=== PATIENT | female | born 1960 | race African-American/Black ===

== ENCOUNTER → 2016-07-22 | Outpatient (CLI) | payer OTHER ==
[~2016-07-22] MED LIST: ALEVE220 MG PO; AMBEREN; AMITRIPTYLINE H25 M2 PO; BENADRYL25 MG PO; BIOTIN2500 MCG PO; CALCIUM 600 +1 EAC2 PO; CHILDREN'S ASPI81 MG PO; COLCHICINE 0.60.6 M1 PO; COPAXONE20 M1 IM; COPAXONE40 MG/1 ML SQ; CYMBALTA60 MG PO; EPIPEN 2-P0.3 MG/0.3 IM; EVENING PRIMRO1 EACH PO; FLAX, FISH & B1 EACH PO; FLEXERIL; GARLIC1000 MG PO; HAIR, SKIN & N1 EAC1 PO; INDOMETHACIN 2525 MG PO; KELP-LECITHIN-1 EACH PO; KELP150 MC1 PO; L-LYSINE500 MG PO; LECITHIN1200 MG PO; MEDROLDOSEPACK PO; NEURONTIN600 MG PO; NORCO 5-325 TA1 EACH PO; PAPAYA ENZYME1 EACH PO; POMEGRANATE250 MG PO; POTASSIUM GLUCO99 M2 PO; PREDNISONE50 MG PO; TRAMADOL 50 MG50 MG PO; VICODIN; VITAMIN B12-FO1 EAC1 PO; VITAMIN D31000 UNI2 PO; VITAMIN E1000 UNI2 PO; VITAMINC500 PO; WOMEN'S DAILY1 EAC1 PO; ZOLOFT50 MG PO
== END ==
LOC: RAD 03:05
DX: Z12.31 Encounter for screening mammogram for malignant neoplasm of breast (principal)

== ENCOUNTER 2016-12-24 11:53 | Emergency (ER) | payer OTHER ==
[~2016-12-24] VITALS: Ht 167.6 cm; Wt 70.8 kg
[2016-12-24] MEDS ORDERED: IBUPROFEN 600600 M1 PO (12:54)
[2016-12-24 13:46] VITALS: BP 122/74
== END 2016-12-24 13:47 | disposition home or self-care (01) ==
LOC: ER 11:53
DX: S92.501A Displaced unspecified fracture of right lesser toe(s), initial encounter for closed fracture (principal); F10.99 Alcohol use, unspecified with unspecified alcohol-induced disorder; Z88.8 Allergy status to other drugs, medicaments and biological substances; W18.49XA Other slipping, tripping and stumbling without falling, initial encounter; Y93.89 Activity, other specified; Y92.89 Other specified places as the place of occurrence of the external cause; Y99.8 Other external cause status